=== PATIENT | female | born 1975 | race Caucasian/White ===

== ENCOUNTER 2016-10-18 17:58 | Observation (INO) | payer OTHER ==
[~2016-10-18] VITALS: Ht 177.8 cm; Wt 79.0 kg
[2016-10-18 18:10] VITALS: BP 95/53
[2016-10-18] MEDS ORDERED: PANTOPRAZOLE 40 MG/10 ML (PROTONIX) VIAL IV ONE (18:15)
[2016-10-18] MEDS ORDERED: ONDANSETRON 4 MG/2 ML (SDV) Z0FRAN IVP PRN (18:15)
[2016-10-18] MEDS ORDERED: LACTATED RINGERS 1,000 ML IV SCH (18:15)
[2016-10-18 18:58] LABS: BASOPHILS % (AUTO) 0 % (0-10); EOSINOPHILS % (AUTO) 0 % (0-10); LYMPHOCYTES # (AUTO) 0.2 X 10^3 (1.0-4.0); LYMPHOCYTES % (AUTO) 2 % (12-44); MEAN CORPUSCULAR HEMOGLOBIN 28 PG (25-34); MEAN CORPUSCULAR HGB CONC 33 G/DL (32-36); MEAN CORPUSCULAR VOLUME 84 FL (80-99); MEAN PLATELET VOLUME 11.4 FL (7.4-10.4); MONOCYTES # (AUTO) 0.3 X 10^3 (0.0-1.0); MONOCYTES % (AUTO) 4 % (0-12); NEUTROPHILS # (AUTO) 8.1 X 10^3 (1.8-7.8); NEUTROPHILS % (AUTO) 94 % (42-75); PLATELET COUNT 228 10^3/uL (130-400); RED CELL DISTRIBUTION WIDTH 14.9 % (10.0-14.5); WHITE BLOOD COUNT 8.6 10^3/uL (4.3-11.0)
[2016-10-18 19:15] LABS: ANION GAP 15 MMOL/L (5-14); BLOOD UREA NITROGEN 9 MG/DL (7-18); BUN/CREATININE RATIO 11; CALCIUM 9.1 MG/DL (8.5-10.1); CARBON DIOXIDE 20 MMOL/L (21-32); CHLORIDE 106 MMOL/L (98-107); GFR ESTIMATED > 60; GLUCOSE 112 MG/DL (70-105); MAGNESIUM 1.9 MG/DL (1.8-2.4); PHOSPHORUS 3.1 MG/DL (2.3-4.7); POTASSIUM 3.5 MMOL/L (3.6-5.0); SODIUM 141 MMOL/L (135-145)
[2016-10-18 19:16] LABS: LYMPHOCYTES % (MANUAL) 3 %; NEUTROPHILS % (MANUAL) 96 %
[2016-10-18] MEDS: LACTATED RINGERS 1,000 ML IV SCH (19:47)
[2016-10-18] MEDS: ACETAMINOPHEN 500 MG TAB (TYLENOL) PO PRN (19:48)
[2016-10-18 19:59] VITALS: BP 111/70
[2016-10-18] MEDS: POTASSIUM CL 10MEQ/50ML IVPB 50 ML IV SCH ×4 (20:28→23:57)
[2016-10-18] MEDS: ONDANSETRON 4 MG/2 ML (SDV) Z0FRAN IVP SCH (22:53)
[2016-10-18] MEDS: PANTOPRAZOLE 40 MG/10 ML (PROTONIX) VIAL IV SCH (22:53)
[2016-10-19 00:14] VITALS: BP 91/55
[2016-10-19] MEDS: ACETAMINOPHEN 500 MG TAB (TYLENOL) PO PRN ×2 (02:11→20:38)
[2016-10-19] MEDS ORDERED: DIPHENOXYLATE/ATROPINE 2.5MG/0.025MG (LOMOTIL) TAB PO SCH (02:15)
[2016-10-19] MEDS: ONDANSETRON 4 MG/2 ML (SDV) Z0FRAN IVP SCH ×6 (02:15→21:28)
[2016-10-19 03:23] VITALS: BP 89/50
[2016-10-19] MEDS: LACTATED RINGERS 1,000 ML IV SCH ×3 (03:53→18:15)
[2016-10-19 07:16] LABS: ALANINE AMINOTRANSFERASE 13 U/L (0-55); ALBUMIN 3.7 G/DL (3.2-4.5); ANION GAP 9 MMOL/L (5-14); ASPARTATE AMINO TRANSFERASE 17 U/L (5-34); BILIRUBIN,TOTAL 0.5 MG/DL (0.1-1.0); BLOOD UREA NITROGEN 7 MG/DL (7-18); BUN/CREATININE RATIO 9; CALCIUM 8.4 MG/DL (8.5-10.1); CARBON DIOXIDE 23 MMOL/L (21-32); CHLORIDE 106 MMOL/L (98-107); CREATININE SERUM 0.75 MG/DL (0.60-1.30); GFR ESTIMATED > 60; GLUCOSE 101 MG/DL (70-105); POTASSIUM 3.4 MMOL/L (3.6-5.0); SODIUM 138 MMOL/L (135-145)
--- NOTE | 2016-10-19 07:37 | HISTORY AND PHYSICAL ---
DATE OF ADMISSION: 10/18/2016 DIAGNOSIS: Acute gastroenteritis with dehydration. 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 Due to increasing severity of the symptoms and consequent dehydration, she has been admitted. PAST MEDICAL HISTORY: None. PAST SURGICAL HISTORY: Open cholecystectomy. Hysterectomy. MEDICATIONS: None. ALLERGIES: None. 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 PHYSICAL EXAMINATION: She appears to be rather uncomfortable and reports headache. She is also nauseous with a tendency to retching constantly. VITALS: Pulse 90 and regular, blood pressure 94/63, respirations 20, oxygen saturation 98% on room air, temperature 100.2. HEENT: Her neck is supple and there is no jugular venous distention. Her oral mucosa is dry, consistent with dehydration. ABDOMEN: Severe epigastric tenderness. No evidence of peritonitis. ASSESSMENT: Lady with rather acute onset of abdominal pain, nausea and vomiting, along with diarrhea. Possibly acute gastritis with dehydration. RECOMMENDATIONS/PLAN: She will receive intravenous fluids and antiemetics. In addition, proton pump inhibitors will be administered intravenously as well. Due to fever, blood count and electrolytes will be checked as well. Job ID: [id number] Dictated Date: 10/18/2016 18:37:55 Tow Bar Driver Date: 10/19/2016 07:33:41/tammi WILSON
[2016-10-19 08:25] VITALS: BP 92/54
[2016-10-19] MEDS: PANTOPRAZOLE 40 MG/10 ML (PROTONIX) VIAL IV SCH ×2 (09:57→21:28)
[2016-10-19] MEDS: POTASSIUM CL 10MEQ/50ML IVPB 50 ML IV SCH ×6 (09:57→20:39)
--- NOTE | 2016-10-19 10:02 | Progress Note-Standard ---
Standard Progress Note Progress Notes/Assess & Plan Progress/Assessment & Plan 10/19/16: Diarrhea overnight. Slightly improved with Imodium. Epigastric tenderness improved. Low-grade fever around 100.5. Hypokalemia and hypomagnesemia, will be replaced. Suspect she has infectious gastroenteritis. We will observe for 12-24 hours and if diarrhea continues, ciprofloxacin and stool cultures would be considered. Peripheral nutrition with Clinimix to be started today Final Diagnosis Acute gastroenteritis with dehydration. Hypokalemia. Hypomagnesemia. RODRIGO MONTGOMERY MD Oct 19, 2016 10:02
[2016-10-19] MEDS: MAGNESIUM 1 GM/100 ML IVPB 100 ML IV SCH ×2 (11:55→13:17)
[2016-10-19 12:10] VITALS: BP 100/62
[2016-10-19] MEDS: AA 4.25% W/LYTES IN D5W IV SOL 1,000 ML IV SCH ×2 (13:16→15:45)
[2016-10-19 15:45] VITALS: BP 95/62
[2016-10-19 19:46] VITALS: BP 107/68
[2016-10-20] VITALS: BP 90/51
[2016-10-20] MEDS: ONDANSETRON 4 MG/2 ML (SDV) Z0FRAN IVP SCH ×6 (01:01→20:36)
[2016-10-20] MEDS: AA 4.25% W/LYTES IN D5W IV SOL 1,000 ML IV SCH ×3 (01:01→17:26)
[2016-10-20] MEDS: LACTATED RINGERS 1,000 ML IV SCH ×3 (01:13→17:29)
[2016-10-20 04:00] VITALS: BP 87/54
[2016-10-20 07:56] LABS: BASOPHILS % (AUTO) 0 % (0-10); EOSINOPHILS # (AUTO) 0.2 10^3/uL (0.0-0.3); EOSINOPHILS % (AUTO) 4 % (0-10); LYMPHOCYTES % (AUTO) 21 % (12-44); MEAN CORPUSCULAR HEMOGLOBIN 27 PG (25-34); MEAN CORPUSCULAR HGB CONC 32 G/DL (32-36); MEAN CORPUSCULAR VOLUME 85 FL (80-99); MEAN PLATELET VOLUME 11.5 FL (7.4-10.4); MONOCYTES # (AUTO) 0.8 X 10^3 (0.0-1.0); MONOCYTES % (AUTO) 15 % (0-12); NEUTROPHILS # (AUTO) 2.9 X 10^3 (1.8-7.8); NEUTROPHILS % (AUTO) 60 % (42-75); PLATELET COUNT 182 10^3/uL (130-400); RED BLOOD COUNT 4.21 10^6/uL (4.35-5.85); RED CELL DISTRIBUTION WIDTH 15.1 % (10.0-14.5); WHITE BLOOD COUNT 4.9 10^3/uL (4.3-11.0)
[2016-10-20 08:10] VITALS: BP 105/69
[2016-10-20 08:20] LABS: ANION GAP 8 MMOL/L (5-14); BLOOD UREA NITROGEN 12 MG/DL (7-18); BUN/CREATININE RATIO 17; CALCIUM 8.2 MG/DL (8.5-10.1); CARBON DIOXIDE 25 MMOL/L (21-32); CHLORIDE 106 MMOL/L (98-107); CREATININE SERUM 0.71 MG/DL (0.60-1.30); GFR ESTIMATED > 60; GLUCOSE 103 MG/DL (70-105); SODIUM 139 MMOL/L (135-145)
--- NOTE | 2016-10-20 08:49 | Progress Note-Standard ---
Standard Progress Note Progress Notes/Assess & Plan Progress/Assessment & Plan 10/19/16: Diarrhea overnight. Slightly improved with Imodium. Epigastric tenderness improved. Low-grade fever around 100.5. Hypokalemia and hypomagnesemia, will be replaced. Suspect she has infectious gastroenteritis. We will observe for 12-24 hours and if diarrhea continues, ciprofloxacin and stool cultures would be considered. Peripheral nutrition with Clinimix to be started today 10/20/16:1 episode of diarrhea early this morning. Systolic blood pressure stable in the 80s. Temperature 100.5 last night, afebrile now. Minimal epigastric tenderness. No tenderness over the left lower quadrant. White cell count still normal. Electrolytes pending. Reasonable to rule out Clostridium difficile colitis, even though the risk of exposure is very low. Empiric ciprofloxacin will be started intravenously. Final Diagnosis acute gastroenteritis with dehydration. RODRIGO MONTGOMERY MD Oct 20, 2016 8:49 am
[2016-10-20] MEDS: PANTOPRAZOLE 40 MG/10 ML (PROTONIX) VIAL IV SCH ×2 (09:06→20:36)
[2016-10-20] MEDS: CIPROFLOXACIN IV 400MG/200ML 200 ML IV SCH ×2 (09:06→20:36)
[2016-10-20 12:10] VITALS: BP 100/60
[2016-10-20] MEDS ORDERED: CATHETER FLUSH 10 ML SYR IV PRN (14:45)
[2016-10-20 15:30] VITALS: BP 98/66
[2016-10-20 19:20] VITALS: BP 105/67
[2016-10-21] VITALS: BP 95/56
[2016-10-21] MEDS: ONDANSETRON 4 MG/2 ML (SDV) Z0FRAN IVP SCH ×3 (01:44→08:30)
[2016-10-21] MEDS: AA 4.25% W/LYTES IN D5W IV SOL 1,000 ML IV SCH ×2 (01:48→07:29)
[2016-10-21] MEDS: LACTATED RINGERS 1,000 ML IV SCH (02:15)
[2016-10-21 04:00] VITALS: BP 100/61
[2016-10-21] MEDS: CIPROFLOXACIN IV 400MG/200ML 200 ML IV SCH (08:30)
[2016-10-21] MEDS: PANTOPRAZOLE 40 MG/10 ML (PROTONIX) VIAL IV SCH (08:30)
[2016-10-21 08:36] VITALS: BP 100/57
[2016-10-21 11:33] VITALS: BP 100/57
--- NOTE | 2016-10-21 16:49 | Progress Note-Standard ---
Standard Progress Note Progress Notes/Assess & Plan Progress/Assessment & Plan 10/19/16: Diarrhea overnight. Slightly improved with Imodium. Epigastric tenderness improved. Low-grade fever around 100.5. Hypokalemia and hypomagnesemia, will be replaced. Suspect she has infectious gastroenteritis. We will observe for 12-24 hours and if diarrhea continues, ciprofloxacin and stool cultures would be considered. Peripheral nutrition with Clinimix to be started today 10/20/16:1 episode of diarrhea early this morning. Systolic blood pressure stable in the 80s. Temperature 100.5 last night, afebrile now. Minimal epigastric tenderness. No tenderness over the left lower quadrant. White cell count still normal. Electrolytes pending. Reasonable to rule out Clostridium difficile colitis, even though the risk of exposure is very low. Empiric ciprofloxacin will be started intravenously. 10/21/16:seen earlier this morning around 9 o'clock. No abdominal pain. Tolerating diet. No more diarrhea. Blood pressure more than 100 mmHg systolic. Could be discharged. Final Diagnosis acute gastroenteritis with hypotension and hypokalemia. RODRIGO MONTGOMERY MD Oct 21, 2016 4:49 pm
--- NOTE | 2016-10-23 07:45 | DISCHARGE SUMMARY ---
DATE OF ADMISSION: 10/18/2016 DATE OF DISCHARGE: 10/21/2016 DIAGNOSIS: Acute gastroenteritis with hypotension. 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 She has been managed with intravenous fluids and peripheral parenteral nutrition. Electrolyte abnormalities have been corrected. At the time of discharge, she was ambulating independently and tolerating a regular diet. I have encouraged her to contact me, should there be any concerns during the recovery period. Job ID: [id number] Dictated Date: 10/21/2016 16:49:33 Inset Cutter Date: 10/23/2016 07:43:12/tammi WILSON
== END 2016-10-21 10:46 | disposition home or self-care (01) ==
LOC: UNDOADMOB 17:58 → 4TH 17:58
PROVIDERS: ADMIT Surgery; ATTEND Surgery
DX: E86.0 Dehydration (principal); K52.9 Noninfective gastroenteritis and colitis, unspecified; E87.6 Hypokalemia; E83.42 Hypomagnesemia
CPT/HCPCS: 36415; 80048; 80053; 83735; 84100; 84443; 85007; 85025; 85027; 99211; G0378

== ENCOUNTER → 2016-11-30 | Outpatient (CLI) | payer OTHER ==
--- OUTSIDE RECORDS SUMMARY | 2016-11-30 10:01 | XMS REPORT | Continuity of Care Document ---
Author Author [facility] Organization [facility] Address Unknown Phone Unavailable Support Name Relationship Address Phone RODRIGO MONTGOMERY MD Caregiver #1 [facility] [place] [address] MILI CHINEDU Next Of Kin [address] [place] [id number] Insurance Providers Payer Name Policy Number Subscriber Name Relationship [employer] [id number] Jerome Matthew 18 Self / Same As Patient Advance Directives Directive Response Recorded Date/Time Advance Directives No 10/18/16 7:02pm Health Care Power of Bass Viol Repairer No 10/18/16 7:02pm Organ Donor Yes 10/18/16 7:02pm Resuscitation Status Full Code 10/18/16 7:02pm Problems No problem information available. Medications No known medications. Social History Social History Problem Response Recorded Date/Time Alcohol Use Occasionally Uses 10/18/2016 7:03pm Recreational Drug Use No 10/18/2016 7:03pm Recent Foreign Travel No 10/18/2016 7:07pm Recent Infectious Disease Exposure No 10/18/2016 7:07pm Hospitalization with Isolation Denies 10/21/2016 11:51am Sexually Transmitted Disease No 10/18/2016 7:03pm HIV/AIDS No 10/18/2016 7:03pm Smoking Status Never a Smoker 10/18/2016 7:05pm Recent Hopitalizations No 10/18/2016 7:03pm Sexually Transmitted Disease No 10/18/2016 7:03pm Hospitalization with Isolation Denies 10/21/2016 11:51am Query Response Start Date Stop Date Smoking Status Never a Smoker Hospital Discharge Instructions No hospital discharge instructions. Plan of Care Discharge Date 10/21/16 11:51am Disposition 01 HOME, SELF-CARE Instructions/Education Provided Viral Gastroenteritis, Adult (DC) Forms Provided Return to Work Form Prescriptions See Medication Section Additional Instructions/Education f/u dr montgomery 1-2 wks Functional Status Query Response Date Recorded Patient Orientation Person Place Time Situation October 21, 2016 11:51am Comprehension Ability Understands Concepts October 21, 2016 8:00am Allergies, Adverse Reactions, Alerts No known allergies. Immunizations No immunization records. Vital Signs Acute Vital Signs Vital Response Date/Time Temperature (Fahrenheit) 98.5 degrees F (97.6 - 99.5) 10/21/2016 11:33am Temperature (Calculated Celsius) 36.83980 degrees C (36.4 - 37.5) 10/21/2016 8:36am Temperature Source Tympanic 10/21/2016 11:33am Pulse Rate (adult) 76 bpm (60 - 90) 10/21/2016 11:33am Respiratory Rate 16 bpm (12 - 24) 10/21/2016 11:33am O2 Sat by Pulse Oximetry 99 % (88 - 100) 10/21/2016 11:33am Blood Pressure 100/57 mm Hg 10/21/2016 11:33am Blood Pressure Mean 71 mm Hg 10/21/2016 8:36am Pain Numeric Pain Scale 0-No Pain 10/21/2016 11:33am Height (Feet) 5 feet 10/18/2016 7:06pm Height (Inches) 10.00 inches 10/18/2016 7:06pm Height (Calculated Centimeters) 177.209444 cm 10/18/2016 7:06pm Weight (Pounds) 174 pounds 10/18/2016 7:18pm Weight (Ounces) 1.0 oz 10/18/2016 7:18pm Weight (Calculated Grams) 78534.423 gm 10/18/2016 7:18pm Weight (Calculated Kilograms) 78.496580 kilograms 10/18/2016 7:18pm Calculated BMI 25.0 10/18/2016 7:06pm Results Laboratory Results Test Name Result Units Flags Reference Collection Date/Time Result Date/ Time Comments White Blood Count 4.9 10^3/uL 4.3-11.0 10/20/2016 7:46am 10/20/2016 7: 56am Red Blood Count 4.21 10^6/uL L 4.35-5.85 10/20/2016 7:46am 10/20/2016 7: 56am Hemoglobin 11.4 G/DL L 11.5-16.0 10/20/2016 7:46am 10/20/2016 7:56am Hematocrit 36 % 35-52 10/20/2016 7:46am 10/20/2016 7:56am Mean Corpuscular Volume 85 FL 80-99 10/20/2016 7:46am 10/20/2016 7: 56am Mean Corpuscular Hemoglobin 27 PG 25-34 10/20/2016 7:46am 10/20/2016 7: 56am Mean Corpuscular Hemoglobin Concent 32 G/DL 32-36 10/20/2016 7:46am 12/2016 7:56am Red Cell Distribution Width 15.1 % H 10.0-14.5 10/20/2016 7:46am 2016 7:56am Platelet Count 182 10^3/uL 130-400 10/20/2016 7:46am 10/20/2016 7:56am Mean Platelet Volume 11.5 FL H 7.4-10.4 10/20/2016 7:46am 10/20/2016 7: 56am Neutrophils (%) (Auto) 60 % 42-75 10/20/2016 7:46am 10/20/2016 7:56am Lymphocytes (%) (Auto) 21 % 12-44 10/20/2016 7:46am 10/20/2016 7:56am Monocytes (%) (Auto) 15 % H 0-12 10/20/2016 7:46am 10/20/2016 7:56am Eosinophils (%) (Auto) 4 % 0-10 10/20/2016 7:46am 10/20/2016 7:56am Basophils (%) (Auto) 0 % 0-10 10/20/2016 7:46am 10/20/2016 7:56am Neutrophils # (Auto) 2.9 X 10^3 1.8-7.8 10/20/2016 7:46am 10/20/2016 7: 56am Lymphocytes # (Auto) 1.0 X 10^3 1.0-4.0 10/20/2016 7:46am 10/20/2016 7: 56am Monocytes # (Auto) 0.8 X 10^3 0.0-1.0 10/20/2016 7:46am 10/20/2016 7: 56am Eosinophils # (Auto) 0.2 10^3/uL 0.0-0.3 10/20/2016 7:46am 10/20/2016 7 :56am Basophils # (Auto) 0.0 10^3/uL 0.0-0.1 10/20/2016 7:46am 10/20/2016 7: 56am Neutrophils % (Manual) 96 % 10/18/2016 6:45pm 10/18/2016 7:16pm Lymphocytes % (Manual) 3 % 10/18/2016 6:45pm 10/18/2016 7:16pm Monocytes % (Manual) 1 % 10/18/2016 6:45pm 10/18/2016 7:16pm Elliptocytes MODERATE 10/18/2016 6:45pm 10/18/2016 7:16pm Sodium Level 139 MMOL/L 135-145 10/20/2016 7:46am 10/20/2016 8:30am Potassium Level 4.0 MMOL/L 3.6-5.0 10/20/2016 7:46am 10/20/2016 8:30am Chloride Level 106 MMOL/L 98-107 10/20/2016 7:46am 10/20/2016 8:30am Carbon Dioxide Level 25 MMOL/L 21-32 10/20/2016 7:46am 10/20/2016 8: 30am Anion Gap 8 MMOL/L 5-14 10/20/2016 7:46am 10/20/2016 8:30am Blood Urea Nitrogen 12 MG/DL 7-18 10/20/2016 7:46am 10/20/2016 8:30am Creatinine 0.71 MG/DL 0.60-1.30 10/20/2016 7:46am 10/20/2016 8:30am BUN/Creatinine Ratio 17 10/20/2016 7:46am 10/20/2016 8:30am Estimat Glomerular Filtration Rate > 60 10/20/2016 7:46am 2016 8:30am GFR INTERPRETIVE DATA UNITS FOR ESTIMATED GFR (eGFR): mL/min/1.73 M2 REFERENCE RANGE FOR ESTIMATED GFR (eGFR) eGFR NORMAL eGFR >60 MODERATELY DECREASED eGFR 30-59 SEVERLY DECREASED eGFR 15-29 KIDNEY FAILURE <15 (OR DIALYSIS) Glucose Level 103 MG/DL 70-105 10/20/2016 7:46am 10/20/2016 8:30am Calcium Level 8.2 MG/DL L 8.5-10.1 10/20/2016 7:46am 10/20/2016 8:30am Phosphorus Level 3.1 MG/DL 2.3-4.7 10/18/2016 6:45pm 10/18/2016 7:22pm Magnesium Level 2.0 MG/DL 1.8-2.4 10/20/2016 7:46am 10/20/2016 9:01am Total Bilirubin 0.5 MG/DL 0.1-1.0 10/19/2016 6:50am 10/19/2016 7:27am Alkaline Phosphatase 65 U/L 40-136 10/19/2016 6:50am 10/19/2016 7:27am Aspartate Amino Transf (AST/SGOT) 17 U/L 5-34 10/19/2016 6:50am 2016 7:27am Alanine Aminotransferase (ALT/SGPT) 13 U/L 0-55 10/19/2016 6:50am 10/19 7:27am Total Protein 6.0 G/DL L 6.4-8.2 10/19/2016 6:50am 10/19/2016 7:27am Albumin 3.7 G/DL 3.2-4.5 10/19/2016 6:50am 10/19/2016 7:27am Thyroid Stimulating Hormone (TSH) 1.11 UIU/ML 0.35-4.94 10/20/2016 7: 46am 10/20/2016 2:21pm Procedures No known history of procedures. Encounters Encounter Location Arrival/Admit Date Discharge/Depart Date Attending Provider Discharged Inpatient (obs) [facility] 10/18/16 6:10pm 11:51am RODRIGO MONTGOMERY MD
[2016-11-30 10:15] LABS: BASOPHILS % (AUTO) 0 % (0-10); EOSINOPHILS # (AUTO) 0.2 10^3/uL (0.0-0.3); EOSINOPHILS % (AUTO) 2 % (0-10); LYMPHOCYTES % (AUTO) 28 % (12-44); MEAN CORPUSCULAR HEMOGLOBIN 27 PG (25-34); MEAN CORPUSCULAR HGB CONC 32 G/DL (32-36); MEAN CORPUSCULAR VOLUME 85 FL (80-99); MEAN PLATELET VOLUME 10.6 FL (7.4-10.4); MONOCYTES # (AUTO) 0.6 X 10^3 (0.0-1.0); MONOCYTES % (AUTO) 8 % (0-12); NEUTROPHILS # (AUTO) 4.6 X 10^3 (1.8-7.8); NEUTROPHILS % (AUTO) 62 % (42-75); PLATELET COUNT 250 10^3/uL (130-400); RED BLOOD COUNT 4.42 10^6/uL (4.35-5.85); RED CELL DISTRIBUTION WIDTH 15.1 % (10.0-14.5); WHITE BLOOD COUNT 7.4 10^3/uL (4.3-11.0)
[2016-11-30 10:30] LABS: CHOLESTEROL 183 MG/DL (< 200); DIRECT LDL 104 MG/DL (1-129); MAGNESIUM 2.1 MG/DL (1.8-2.4); TRIGLYCERIDES 57 MG/DL (<150); VLDL CHOLESTEROL 11 MG/DL (5-40)
[2016-11-30 10:52] LABS: ALANINE AMINOTRANSFERASE 17 U/L (0-55); ALBUMIN 4.1 G/DL (3.2-4.5); ANION GAP 8 MMOL/L (5-14); ASPARTATE AMINO TRANSFERASE 23 U/L (5-34); BILIRUBIN,TOTAL 0.4 MG/DL (0.1-1.0); BLOOD UREA NITROGEN 7 MG/DL (7-18); BUN/CREATININE RATIO 9; CALCIUM 8.9 MG/DL (8.5-10.1); CARBON DIOXIDE 27 MMOL/L (21-32); CHLORIDE 105 MMOL/L (98-107); CREATININE SERUM 0.78 MG/DL (0.60-1.30); GFR ESTIMATED > 60; GLUCOSE 91 MG/DL (70-105); POTASSIUM 3.6 MMOL/L (3.6-5.0); SODIUM 140 MMOL/L (135-145); TOTAL PROTEIN 6.7 G/DL (6.4-8.2)
[2016-12-01 07:01] LABS: VITAMIN D 25-HYDROXY (TOTAL) 13 ng/mL (30-100)
== END ==
LOC: LAB 09:58
PROVIDERS: ATTEND Surgery
DX: R53.83 Other fatigue (principal); E87.6 Hypokalemia; R25.2 Cramp and spasm; E46 Unspecified protein-calorie malnutrition
CPT/HCPCS: 36415; 80053; 80061; 82306; 82607; 83735; 85025

== ENCOUNTER → 2017-02-10 | Outpatient (CLI) | payer OTHER ==
--- NOTE | 2017-02-12 06:51 | ECHOCARDIOGRAPHY REPORT ---
DATE OF SERVICE: 02/10/2017 PROCEDURE: 2D ECHOCARDIOGRAM REFERRING PHYSICIAN: Dr. Quintero. INDICATION: Platelets. MEASUREMENT: LVID end diastolic 4.6, IVS thickness 0.9, LVPW thickness 0.9, left atrial diameter 3.4, ejection fraction 60%. FINDINGS: 1. The technical quality is good. 2. The ventricle is normal in size with normal contractility, systolic function appears to be normal. Estimated ejection fraction is 60%. 3. The left atrium is normal in size. No clot or thrombus were seen within the left atrium. 4. The right atrium and right ventricle are normal in size. No clot or shunts were seen within the right side. 5. Mitral valve is normal in morphology with mild mitral regurgitation noted by color Doppler flow. No mitral valve prolapse. No mitral valve stenosis. 6. Aortic valve is trileaflet with normal opening and closing pattern. No significant aortic stenosis or regurgitation was seen. 7. Tricuspid valve is normal in morphology with mild tricuspid regurgitation noted by color Doppler flow. Doppler across tricuspid valve estimated pulmonary artery pressure of 14 plus right atrial pressure. 8. Pulmonic valve is functioning normally. 9. No pericardial effusion. IN CONCLUSION: 1. Normal left ventricular size and systolic function. Estimated ejection fraction 60%. 2. Mild mitral and tricuspid regurgitation. 3. Estimated pulmonary artery pressure of 20 mmHg. Job ID: [id number] DocumentID: [id number] Dictated Date: 02/10/2017 20:35:47 Mold Runner Date: 02/11/2017 11:28:47 Dictated By: ALBERTO PARK MD
== END ==
LOC: CARD 12:53
PROVIDERS: ATTEND Internal Medicine Cardiovascular Disease
DX: R00.2 Palpitations (principal); R06.02 Shortness of breath; Z84.89 Family history of other specified conditions
CPT/HCPCS: 93017; 93306

== ENCOUNTER → 2017-02-23 | Outpatient (CLI) | payer OTHER | LOC: LAB 11:05 | PROVIDERS: ATTEND Nurse Practitioner Family | DX: E55.9 Vitamin D deficiency, unspecified (principal) | CPT/HCPCS: 36415; 82306 ==

== ENCOUNTER → 2017-05-27 | Outpatient (CLI) | payer OTHER | LOC: LAB 10:40 | PROVIDERS: ATTEND Nurse Practitioner Family | DX: E55.9 Vitamin D deficiency, unspecified (principal) | CPT/HCPCS: 36415; 82306 ==

== ENCOUNTER → 2018-02-21 | Outpatient (CLI) | payer OTHER ==
[2018-02-21 08:45] LABS: BASOPHILS % (AUTO) 1 % (0-10); EOSINOPHILS # (AUTO) 0.1 10^3/uL (0.0-0.3); EOSINOPHILS % (AUTO) 3 % (0-10); HEMATOCRIT 37 % (35-52); HEMOGLOBIN 12.6 G/DL (11.5-16.0); LYMPHOCYTES # (AUTO) 1.7 X 10^3 (1.0-4.0); LYMPHOCYTES % (AUTO) 34 % (12-44); MEAN CORPUSCULAR HEMOGLOBIN 29 PG (25-34); MEAN CORPUSCULAR HGB CONC 34 G/DL (32-36); MEAN CORPUSCULAR VOLUME 86 FL (80-99); MEAN PLATELET VOLUME 10.8 FL (7.4-10.4); MONOCYTES # (AUTO) 0.6 X 10^3 (0.0-1.0); MONOCYTES % (AUTO) 12 % (0-12); NEUTROPHILS # (AUTO) 2.5 X 10^3 (1.8-7.8); NEUTROPHILS % (AUTO) 51 % (42-75); PLATELET COUNT 243 10^3/uL (130-400); RED BLOOD COUNT 4.33 10^6/uL (4.35-5.85); WHITE BLOOD COUNT 4.9 10^3/uL (4.3-11.0)
[2018-02-21 09:05] LABS: ALANINE AMINOTRANSFERASE 10 U/L (0-55); ALBUMIN 4.2 GM/DL (3.2-4.5); ALKALINE PHOSPHATASE 77 U/L (40-136); BILIRUBIN,TOTAL 0.5 MG/DL (0.1-1.0); BUN/CREATININE RATIO 13; CARBON DIOXIDE 27 MMOL/L (21-32); CHLORIDE 104 MMOL/L (98-107); CHOLESTEROL 183 MG/DL (< 200); GFR ESTIMATED > 60; GLUCOSE 90 MG/DL (70-105); HDL CHOLESTEROL 72 MG/DL (40-60); SODIUM 138 MMOL/L (135-145); TOTAL PROTEIN 6.9 GM/DL (6.4-8.2); TRIGLYCERIDES 51 MG/DL (<150); VLDL CHOLESTEROL 10 MG/DL (5-40)
== END ==
LOC: LAB 08:23
PROVIDERS: ATTEND Nurse Practitioner Family
DX: Z00.00 Encounter for general adult medical examination without abnormal findings (principal); R53.83 Other fatigue; E55.9 Vitamin D deficiency, unspecified
CPT/HCPCS: 36415; 80053; 80061; 82306; 84443; 85025

== ENCOUNTER 2018-03-03 08:09 | Outpatient (RCR) | payer OTHER | END 2018-06-01 | disposition home or self-care (01) | LOC: CARD 08:09 | PROVIDERS: ATTEND Internal Medicine Cardiovascular Disease | DX: R00.0 Tachycardia, unspecified (principal); R00.2 Palpitations | CPT/HCPCS: 93225; 93226 ==

== ENCOUNTER → 2018-04-18 | Outpatient (CLI) | payer OTHER | LOC: LAB 08:39 | PROVIDERS: ATTEND Physician Assistant | DX: R00.2 Palpitations (principal); I47.1 Supraventricular tachycardia; R06.02 Shortness of breath | CPT/HCPCS: 36415; 84436; 84443; 84479 ==

== ENCOUNTER → 2018-12-01 | Outpatient (CLI) | payer OTHER ==
--- NOTE | 2018-12-02 11:27 | Diagnostic Imaging Report ---
INDICATION: Routine screening. COMPARISON: No prior mammograms are available for comparison. TECHNIQUE: 2D and 3D bilateral screening mammography was performed with CAD. FINDINGS: There are scattered benign-appearing calcifications bilaterally. No dominant mass or malignant appearing microcalcifications are seen. The axillae are unremarkable. IMPRESSION: No mammographic features suspicious for malignancy are identified. ACR BI-RADS Category 2: Benign findings. Result letter will be mailed to the patient. Note: At least 10% of breast cancer is not imaged by mammography. Dictated by: Dictated on workstation # [id number]
== END ==
LOC: RAD 14:52
PROVIDERS: ATTEND Nurse Practitioner Family
DX: Z12.31 Encounter for screening mammogram for malignant neoplasm of breast (principal)
CPT/HCPCS: 77067